=== PATIENT | female | born 1985 | race Caucasian/White ===

== ENCOUNTER 2020-07-28 22:18 | Emergency (ER) | payer SELFPAY ==
[~2020-07-28] VITALS: Ht 165.1 cm; Wt 60.8 kg
[2020-07-28] MEDS ORDERED: ONDANSETRON HCL INJ 2MG/ML 2ML 2 MG/ML VIAL IV STA (22:45)
[2020-07-28] MEDS ORDERED: SODIUM CHLORIDE 0.9% 1000ML 1,000 ML IV SCH (22:45)
[2020-07-28] MEDS ORDERED: MORPHINE SULFATE INJ 4 MG/ML INJ 1ML IV STA (22:48)
[2020-07-29 00:29] LABS: BASOPHILS % 0.6 % (0.0-1.0); EOSINOPHILS # (AUTO) 0.3 (0.0-0.4); HEMATOCRIT 31.3 % (34.2-44.1); HEMOGLOBIN 10.7 g/dL (12.0-16.0); LYMPHOCYTES # (AUTO) 1.3 (1.0-3.2); LYMPHOCYTES % 18.2 % (18.0-39.1); MEAN CORPUSCULAR HEMOGLOBIN 34.4 pg (28-32); MEAN CORPUSCULAR HGB CONC 34.2 g/dL (31-35); MEAN CORPUSCULAR VOLUME 100.6 fL (81-99); MONOCYTES # (AUTO) 0.7 (0.2-0.8); MONOCYTES % 9.6 % (4.4-11.3); NEUTROPHILS # (AUTO) 4.8 (2.1-6.9); NEUTROPHILS % 67.3 % (38.7-80.0); PLATELET COUNT 220 x10e3/uL (140-360); RED BLOOD COUNT 3.11 x10e6/uL (3.6-5.1); RED CELL DISTRIBUTION WIDTH 15.1 % (11.7-14.4)
[2020-07-29 01:00] LABS: ALANINE AMINOTRANSFERASE 130 IU/L (0-55); ALBUMIN/GLOBULIN RATIO 0.8 (0.8-2.0); ALKALINE PHOSPHATASE 825 IU/L (40-150); ANION GAP 14.5 mmol/L (8-16); BLOOD UREA NITROGEN 13 mg/dL (7-26); BUN/CREATININE RATIO 20 (6-25); CARBON DIOXIDE 26 mmol/L (22-29); CHLORIDE 106 mmol/L (98-107); CREATINE KINASE 41 IU/L (29-168); CREATININE, SERUM 0.64 mg/dL (0.57-1.11); EST GLOMERULAR FILTRATION RATE > 60 ML/MIN (60-); GLUCOSE 145 mg/dL (74-118); POTASSIUM 3.5 mmol/L (3.5-5.1); SODIUM 143 mmol/L (136-145)
[2020-07-29 01:28] LABS: AMYLASE 28 U/L (25-125); LIPASE 36 U/L (8-78)
[2020-07-29] MEDS ORDERED: MORPHINE SULFATE INJ 4 MG/ML INJ 1ML ONE (03:26)
[2020-07-29] MEDS ORDERED: LEVOFLOXACIN 500MG/D5W 100ML 100 ML IV ONE ×2 (05:00→06:13)
[2020-07-29] MEDS ORDERED: METRONIDAZOLE 500MG/NS 100ML 100 ML IV ONE (05:00)
[2020-07-29 05:35] LABS: CLARITY,URINE CLEAR (CLEAR); COLOR,URINE YELLOW (YELLOW); KETONES,URINE NEGATIVE (NEGATIVE); LEUKOCYTE ESTERASE ,URINE NEGATIVE (NEGATIVE); NITRITE,URINE NEGATIVE (NEGATIVE); PROTEIN,URINE DIPSTICK NEGATIVE (NEGATIVE); URINE UROBILINOGEN 1 mg/dL (0.2 - 1)
[2020-07-29 06:06] LABS: BACTERIA,URINE FEW /HPF; EPITHELIAL CELLS,URINE FEW /LPF; RBC,URINE 0-5 /HPF (0-5); WBC,URINE (MAN) 0-5 /HPF (0-5)
[2020-07-29] MEDS ORDERED: MORPHINE SULFATE INJ 4 MG/ML INJ 1ML IV PRN ×2 (07:30→07:45)
== END 2020-07-29 07:43 | disposition other institution (70) ==
LOC: ER 22:29
DX: R07.9 Chest pain, unspecified (principal); K83.09 Other cholangitis; R10.11 Right upper quadrant pain; R74.01 Elevation of levels of liver transaminase levels; R17 Unspecified jaundice; Z20.822 Contact with and (suspected) exposure to COVID-19
CPT/HCPCS: 36415; 71045; 80053; 81001; 82150; 82550; 82553; 83690; 84484; 84702; 85025; 85379; 87040; 93005; 99284; J1956; J2270; J2405; J7030; U0002

== ENCOUNTER 2024-07-04 22:56 | Emergency (ER) | payer MEDICARE, OTHER ==
[~2024-07-04] VITALS: Ht 165.1 cm; Wt 47.6 kg
[2024-07-05 02:20] VITALS: PULSE 80; RESP 18; TEMP 98.2
[2024-07-05 02:22] VITALS: BP 154/84; PULSE 80; RESP 18; TEMP 98.2; O2SAT 100
== END 2024-07-05 02:25 | disposition home or self-care (01) ==
LOC: FSED 23:25
DX: R10.84 Generalized abdominal pain (principal); R17 Unspecified jaundice; R19.7 Diarrhea, unspecified; I12.0 Hypertensive chronic kidney disease with stage 5 chronic kidney disease or end stage renal disease; E11.22 Type 2 diabetes mellitus with diabetic chronic kidney disease; E11.65 Type 2 diabetes mellitus with hyperglycemia; N18.6 End stage renal disease; Z99.2 Dependence on renal dialysis; K21.9 Gastro-esophageal reflux disease without esophagitis; Z94.4 Liver transplant status
CPT/HCPCS: 74176; 80048; 80076; 81003; 81025; 85025; 99284

== ENCOUNTER 2024-10-05 08:24 | Emergency (ER) | payer MEDICARE ==
[~2024-10-05] VITALS: Ht 165.1 cm; Wt 50.5 kg
[2024-10-05] MEDS ORDERED: ERGOCALCIFEROL1 GM (10:15)
[2024-10-05] MEDS ORDERED: URSODIOL300 MG PO (10:15)
[2024-10-05] MEDS ORDERED: BUMETANIDE1 MG PO (10:15)
[2024-10-05] MEDS ORDERED: NOVOLOG100 UNIT/1 SC (10:15)
[2024-10-05] MEDS ORDERED: PROGRAF1 MG PO (10:15)
[2024-10-05] MEDS ORDERED: CALCIUM CARBON500 MG PO (10:15)
[2024-10-05] MEDS ORDERED: PREDNISONE20 MG PO (10:15)
[2024-10-05] MEDS ORDERED: ENULOSE10 GM/15 M PO (10:15)
[2024-10-05] MEDS ORDERED: HUMULIN R100 UNIT/2 INJ (10:15)
[2024-10-05] MEDS ORDERED: QUESTRAN PACKET4 GM PO (10:15)
[2024-10-05] MEDS ORDERED: PANTOPRAZOLE SO40 MG PO (10:15)
[2024-10-05] MEDS: Morphine 4mg INJECTION 4 MG/ML INJ IV ONE (11:06)
[2024-10-05 12:51] VITALS: BP 116/57; RESP 16
[2024-10-05] MEDS: SODIUM CHLORIDE 0.9% 1000ML 1,000 ML IV ONE (13:22)
[2024-10-05 15:02] LABS: ANION GAP 20.4 mmol/L (8-16); CALCIUM 8.6 mg/dL (8.4-10.2); CREATININE, SERUM 2.97 mg/dL (0.57-1.11)
[2024-10-05 15:04] LABS: POTASSIUM 3.4 mmol/L (3.5-5.1)
[2024-10-05] MEDS: SODIUM CHLORIDE 0.9% 1000ML 1,000 ML IV SCH (15:55)
[2024-10-05 17:27] VITALS: PULSE 86; RESP 16; TEMP 99.8; O2SAT 99
[2024-10-05] MEDS ORDERED: DIPHENHYDRAMINE HCL INJ 50 MG/ML VIAL ONE (17:31)
[2024-10-05] MEDS: DIPHENHYDRAMINE HCL INJ 50 MG/ML VIAL IV ONE (17:51)
[2024-10-06 09:54] LABS: CMV IGG ANTIBODY >10.00 U/mL (0.00-0.59)
== END 2024-10-05 12:52 | disposition home or self-care (01) ==
LOC: FSED 08:47
DX: R50.9 Fever, unspecified (principal); N17.9 Acute kidney failure, unspecified; B34.9 Viral infection, unspecified; D64.9 Anemia, unspecified; K21.9 Gastro-esophageal reflux disease without esophagitis; Z11.52 Encounter for screening for COVID-19; R94.31 Abnormal electrocardiogram [ECG] [EKG]; Z94.4 Liver transplant status
CPT/HCPCS: 0223U; 36415; 71046; 80053; 81003; 83518; 84484; 85025; 85379; 86644; 86665; 87040; 87400; 93005; 96374; 99284; J1200; J2270; J7030; 80048; 99283